=== PATIENT | female | born 2000 | race Two or more races ===

== ENCOUNTER 2022-06-10 08:37 | Emergency (ER) | payer MEDICAID ==
[~2022-06-10] VITALS: Ht 149.9 cm; Wt 82.8 kg
[2022-06-10 09:11] LABS: Basophils # (auto) 0 10 ^3/uL (0-0.2); Basophils % (auto) 0.6 % (0.0-2.0); Eosinophils # (auto) 0.1 10 ^3/uL (0-0.8); Eosinophils % (auto) 1.3 % (0.0-7.0); Hematocrit 42.9 % (36.0-46.0); Hemoglobin 14.5 g/dL (12.2-16.2); Lymphocytes # (auto) 2.1 10 ^3/uL (0.4-5.4); Lymphocytes % (auto) 28.9 % (10.0-50.0); Mean Corpuscular Hemoglobin 29.5 pg (28.0-32.0); Mean Corpuscular Hgb Conc. 33.9 g/dL (32.0-36.0); Mean Corpuscular Volume 87.2 fL (80.0-100.0); Monocytes # (auto) 0.4 10 ^3/uL (0-1.3); Monocytes % (auto) 5.9 % (0.0-12.0); Neutrophils # (auto) 4.7 10 ^3/uL (1.6-8.6); Neutrophils % (auto) 63.3 % (37.0-80.0); Nucleated Red Blood Cells % 0.4 %; Red Blood Cells 4.92 10^6/uL (4.0-5.20); Red Cell Distribution Width 14.6 % (11.8-14.3); White Blood Cell 7.4 10^3/uL (4.4-10.8)
[2022-06-10 09:34] LABS: BUN/Creatinine Ratio 14.3; Potassium 3.9 mmol/L (3.5-5.1)
[2022-06-10 10:08] VITALS: BP 119/88
[2022-06-10 11:56] LABS: Urine Bacteria NONE SEEN /hpf (None Seen); Urine Blood 2+ /uL (Negative); Urine Specific Gravity 1.002 (1.001-1.035); Urine WBC 1 /hpf (0 - 5)
== END 2022-06-10 11:50 | disposition home or self-care (01) ==
LOC: ER 08:37
DX: O20.0 Threatened abortion (principal); Z3A.10 10 weeks gestation of pregnancy
CPT/HCPCS: 36415; 76801; 76817; 80048; 81001; 84702; 85025

== ENCOUNTER → 2024-06-19 | Outpatient (CLI) | payer MEDICAID ==
[2024-06-19 11:20] LABS: Basophils # (auto) 0 10 ^3/uL (0-0.2); Basophils % (auto) 0.3 % (0.0-2.0); Eosinophils # (auto) 0 10 ^3/uL (0-0.8); Eosinophils % (auto) 0.4 % (0.0-7.0); Hematocrit 42.4 % (36.0-46.0); Hemoglobin 14.3 g/dL (12.2-16.2); Lymphocytes # (auto) 2.1 10 ^3/uL (0.4-5.4); Lymphocytes % (auto) 28.4 % (10.0-50.0); Mean Corpuscular Hemoglobin 30.8 pg (28.0-32.0); Mean Corpuscular Hgb Conc. 33.8 g/dL (32.0-36.0); Mean Corpuscular Volume 90.9 fL (80.0-100.0); Monocytes # (auto) 0.4 10 ^3/uL (0-1.3); Monocytes % (auto) 5.5 % (0.0-12.0); Neutrophils # (auto) 4.8 10 ^3/uL (1.6-8.6); Neutrophils % (auto) 65.4 % (37.0-80.0); Nucleated Red Blood Cells % 0.1 %; Platelet Count (auto) 254 10^3/uL (140-450); Red Blood Cells 4.66 10^6/uL (4.0-5.20); Red Cell Distribution Width 13.1 % (11.8-14.3); White Blood Cell 7.4 10^3/uL (4.4-10.8)
[2024-06-19 12:02] LABS: Beta HCG, Quantitative 549.4 mIU/mL (1.5-4.2)
[2024-06-19 12:06] LABS: Alanine Aminotransferase 17 U/L (7-40); Alkaline Phosphatase 63 U/L (46-116); Anion Gap 9 (5-15); BUN/Creatinine Ratio 11.6 (10.0-20.0); Bilirubin, Total 0.4 mg/dL (0.2-1.0); Calcium 9.9 mg/dL (8.7-10.4); Carbon Dioxide 25 mmol/L (20-31); Chloride 102 mmol/L (98-107); Cholesterol 195 mg/dL (< 200); Glucose 82 mg/dL (74-106); HDL Cholesterol 57 mg/dL (40-59); Sodium 136 mmol/L (136-145); Thyroid Stimulating Hormone 0.94 uIU/mL (0.55-4.78); Triglycerides 81 mg/dL (< 150)
[2024-06-19 12:08] LABS: Albumin 5.2 g/dL (3.2-4.8); Aspartate Aminotransferase 10 U/L (13-40); Blood Urea Nitrogen 8 mg/dL (9-23); LDL Cholesterol 137 mg/dL (< 100); Potassium 3.5 mmol/L (3.5-5.1)
[2024-06-19 13:05] LABS: Amphetamine Screen, Urine Neg (NEGATIVE); Barbiturate Scree,Urine Neg (NEGATIVE); Benzodiazephine Screen, Urine Neg (NEGATIVE); Cannabinoid Screen, Urine Neg (NEGATIVE); Cocaine Screen, Urine Neg (NEGATIVE); Opiate Scree,Urine Neg (NEGATIVE); Phencyclidine Screen, Urine Neg (NEGATIVE)
[2024-06-20 08:06] LABS: RPR Non Reactive (Non Reactive); Varicella Zoster IgG Antibody Reactive (Non Reactive)
[2024-06-20 19:06] LABS: Chlamydia Trachomatis, NAA Negative (Negative); Neisseria gonorrhoeae, NAA Negative (Negative)
== END | disposition home or self-care (01) ==
LOC: LAB 10:00
PROVIDERS: ATTEND Obstetrics & Gynecology
DX: O23.40 Unspecified infection of urinary tract in pregnancy, unspecified trimester (principal); Z31.430 Encounter of female for testing for genetic disease carrier status for procreative management; Z36.0 Encounter for antenatal screening for chromosomal anomalies; N39.0 Urinary tract infection, site not specified; Z3A.00 Weeks of gestation of pregnancy not specified
CPT/HCPCS: 36415; 80053; 80061; 80307; 83036; 84439; 84443; 84702; 85025; 86592; 86703; 86762; 86787; 86850; 86900; 86901; 87086; 87340; 87902

== ENCOUNTER 2024-07-16 18:58 | Emergency (ER) | payer MEDICAID ==
[~2024-07-16] VITALS: Ht 149.9 cm; Wt 79.5 kg
[2024-07-16 21:10] LABS: Urine Bacteria FEW /hpf (None Seen); Urine Blood 1+ /uL (Negative); Urine Clarity Clear (Clear); Urine Color Light-Yellow (Yellow); Urine Protein, UAD Negative (Negative); Urine Squamous Epithelial Cell FEW /hpf (<5); Urine Urobilinogen Normal (Negative); Urine WBC 6 /HPF (0-5)
--- NOTE | 2024-07-16 21:55 | DVH ---
OB ULTRASOUND <14 WEEKS: HISTORY: Vaginal bleed TECHNIQUE: Multiple real-time grayscale sonographic images of the pelvis with duplex Doppler color f low, spectral and M-mode analysis. TRANSDUCERS: COMPARISON: OB ULTRASOUND COMP LESS 14WKS on DOS: 06/10/22 FINDINGS: There is a single intrauterine gestational sac containing a pole. cardiac activity was id entified with heart rate of 169 bpm. A small hypoechoic area measuring up to 13 mm is noted adjacent to the gestational sac consistent with small subchorionic bleed. Mean sac diameter measures 34.5 mm corresponding to estimated gestational age of 8 weeks 4 days. Silvis rump length measures 16.1 mm corresponding to estimated gestational age of 8 weeks 0 days. Average ultrasound gestational age: 8 weeks 2 days. JENNIFER: 02/23/2025. Right ovary measures approximately 3.8 x 2.7 x 4 cm and demonstrates no abnormality with normal Doppl er color flow. Left ovary measures approximately 4.9 x 2.8 x 5.3 cm and demonstrates a cyst measuring up to 3.7 cm. Normal Doppler color flow. No pelvic mass or fluid collection. IMPRESSION: Single live intrauterine with estimated gestational age of 8 weeks 2 days. Evidence of smal l 13 mm subchorionic bleed.
--- NOTE | 2024-07-16 23:33 | ED.PDOC ---
ADMITTING COUNSELOR HPI Comments Patient is a pleasant but morbidly obese 23-year-old female who was a patient who arrives today with complaints of a vaginal bleeding event today. Patient is patient is currently approximately eight weeks . Patient states she had two events some spotting earlier today with some cramping. Patient denies any traumatic events. Patient denies any fever nausea or vomiting. Patient states that she is currently having mild vaginal bleeding. Vital signs were stable on arrival. Chief Complaint: Vaginal Bleed Time Seen by MD: 20:49 Reviewed Notes: Nurses Notes Allergies: Coded Allergies: NO KNOWN ALLERGIES (Unverified , 06/10/22) Information Source: Patient Mode of Arrival: Ambulatory Timing: Hours Prehospital treatment: None Severity: Mild Bleeding Quality: Bright Red Onset Of Mass/Bleeding: Spontaneous Past Medical History PAST MEDICAL HISTORY: Denies Past Medical History (Other): Patient states she is currently eight weeks . Surgical History: Denies all surgeries MOTOR GENERATOR SET OPERATOR History: Denies all MOTOR GENERATOR SET OPERATOR Hx Family History Family History: Reviewed,noncontributory to illness Social History Smoker: Non-Smoker Alcohol: Denies ETOH Use Drugs: Denies Drug Use Lives In: Home Constitutional: denies: chills, diaphoresis, fatigue, fever, malaise, sweats, weakness, others EENTM: denies: blurred vision, double vision, ear bleeding, ear discharge, ear drainage, ear pain, ear ringing, eye pain, eye redness, hearing loss, mouth pain, mouth swelling, nasal discharge, nose bleeding, nose congestion, nose pain, photophobia, tearing, throat pain, throat swelling, voice changes, others Respiratory: denies: cough, hemoptysis, orthopnea, SOB at rest, shortness of breath, SOB with excertion, stridor, wheezing, others Cardiovascular: denies: chest pain, dizzy spells, diaphoresis, Dyspnea on exertion, edema, irregular heart beat, left arm pain, lightheadedness, palpitations, PND, syncope, others Gastrointestinal: reports: abdominal pain; denies: abdomen distended, blood streaked bowels, constipated, diarrhea, dysphagia, difficulty swallowing, hematemesis, melena, nausea, poor appetite, poor fluid intake, rectal bleeding, rectal pain, vomiting, others Genitourinary: reports: abnormal vagina bleeding; denies: burning, dyspareunia, dysuria, flank pain, frequency, hematuria, incontinence, pain, , vagina discharge, urgency, others Neurological: denies: dizziness, fainting, headache, left sided numbness, left sided weakness, numbness, paresthesia, pre-existing deficit, right sided numbness, right sided weakness, seizure, speech problems, tingling, tremors, weakness, others Musculoskeletal: denies: back pain, gout, joint pain, joint swelling, muscle pain, muscle stiffness, neck pain, others Integumetry: denies: bruises, change in color, change in hair/nails, dryness, laceration, lesions, lumps, rash, wounds, others Allergic/Immunocompromised: denies: Difficulty Healing, Frequent Infections, Hives, Itching, others Hematologic/Lymphatic: denies: anemia, blood clots, easy bleeding, easy bruising, swollen glands, others Endocrine: denies: excessive hunger, excessive sweating, excessive thirst, excessive urination, flushing, intolerance to cold, intolerance to heat, unexplained weight gain, unexplained weight loss, others Psychiatric: denies: anxiety, bipolar disorder, depression, hopeless, panic disorder, schizophrenia, sleepless, suicidal, others Physical Exam General Appearance: Mild Distress ( Moderate distress due to anxiety as much as pain concerns.), Obese HEENT: Normal ENT Inspection, Pharynx Normal, TMs Normal Neck: Full Range of Motion, Non-Tender, Normal, Normal Inspection Respiratory: Chest Non-Tender, Lungs Clear, No Accessory Muscle Use, No Respiratory Distress, Normal Breath Sounds Cardiovascular: No Edema, No JVD, No Murmur, No Gallop, Normal Peripheral Pulses, Regular Rate/Rhythm Breast Exam: Deferred Gastrointestinal: Other ( Mild diffuse lower abdominal/ pelvic tenderness to palpation. Difficult to assess due to body habitus. No signs of trauma.) Genitalia: Deferred Pelvic: Deferred Rectal: Deferred Extremities: No calf tenderness, Normal capillary refill, Normal inspection, Normal range of motion, Non-tender, No pedal edema Neurologic: Alert, cloth bale header II-XII nml as Tested, No Motor Deficits, Normal Affect, Normal Mood, No Sensory Deficits Cerebellar Function: Normal Reflexes: Normal Skin: Dry, Normal Color, Warm Lymphatic: No Adenopathy Was a procedure done? Was a procedure done?: No Differential Diagnosis (MOTOR GENERATOR SET OPERATOR) Vaginal Bleeding: - Complete, - Incomplete, - Inevitable, - Missed, - Threatened, Menometrorrhagia, Menstrual Bleeding, Other ( Subchorionic hemorrhage) X-Ray, Labs, Meds, VS Vital Signs Date Time Temp Pulse Resp B/P (MAP) Pulse Ox O2 Delivery O2 Flow Rate FiO2 07/16/24 19:57 98.3 94 16 114/75 (88) 100 Lab Test 07/16/24 21:00 07/16/24 20:56 Range/Units Beta HCG, Quantitative 847872.6 H 1.5-4.2 mIU/mL Urine Color Light-yellow Yellow Urine Clarity Clear Clear Urine pH 6.0 5.0-9.0 Urine Specific Liberal 1.020 1.001-1.035 Urine Protein Negative Negative Urine Ketones Negative Negative Urine Blood 1+ H Negative /uL Urine Nitrite Negative Negative Urine Bilirubin Negative Negative Urine Urobilinogen Normal Negative mg/dL Urine Leukocyte Esterase Negative Negative /uL Urine RBC 1 0 - 4 /hpf Urine Microscopic WBC 6 H 0-5 /HPF Urine Squamous Epithelial Cells Few <5 /hpf Urine Bacteria Few H None Seen /hpf Urine Glucose Normal Normal mg/dL X-Ray, Labs, Meds, VS Comment All studies performed the ED were evaluated by me personally. Patient's beta- hCG today was [id number]. OB ultrasound confirmed an eight week two day with a small subchorionic bleed. Advised patient follow up with touch up painter for continued long-term management of her currently healthy . Time of 1ST Reevaluation: 23:30 Reevaluation 1ST: Improved Consultation: PCP, oracle adf developer Patient Education/Counseling: Diagnosis, Treatment Family Education/Counseling: Diagnosis, Treatment Departure 1 Departure Time of Disposition: 23:31 Impression: Primary Impression: Vaginal bleeding before 22 weeks gestation Additional Impression: Subchorionic bleed Disposition: HOME / SELF CARE / HOMELESS Condition: Stable Additional Instructions: Advised patient she has a healthy eight week 2-day-old viable fetus, but she does have a small subchorionic bleed and therefore, should follow up with her touch up painter in the next few days for re-evaluation and management. Discharged With: Self, Friend Critical Care Note Critical Care Time?: No Stability Stability form required: No Heart Score Heart Score: Heart Score Response (Comments) Value History N/A 0 EKG N/A 0 Age N/A 0 Risk Factors N/A 0 Troponin N/A 0 Total 0 KADIE REYEZ PAC Jul 16, 2024 23:33
[2024-07-16 23:57] VITALS: BP 124/82; PULSE 89; RESP 16; TEMP 97.6; O2SAT 97
== END 2024-07-17 00:06 | disposition home or self-care (01) ==
LOC: ER 18:58
DX: O20.8 Other hemorrhage in early pregnancy (principal); Z3A.08 8 weeks gestation of pregnancy
CPT/HCPCS: 36415; 76801; 81001; 84702